=== PATIENT | male | born 1980 | race Two or more races ===

== ENCOUNTER 2017-03-04 05:43 | Emergency (ER) | payer SELFPAY ==
[~2017-03-04] VITALS: Ht 182.9 cm; Wt 161.0 kg
[2017-03-04 05:45] VITALS: BP 135/81
[2017-03-04] MEDS ORDERED: KETOROLAC 30 MG/1 ML ONE ×2 (06:09→06:10)
[2017-03-04] MEDS ORDERED: KETOROLAC 30 MG/1 ML IM ONE (06:30)
== END 2017-03-04 08:50 | disposition home or self-care (01) ==
LOC: ED 06:14
DX: M25.562 Pain in left knee (principal)
CPT/HCPCS: 29505; 73564; 96372; 99284; J1885